=== PATIENT | female | born 1960 | race African-American/Black ===

== ENCOUNTER 2017-08-11 10:46 | Emergency (ER) | payer MEDICAID ==
[~2017-08-11] VITALS: Ht 160 cm; Wt 47.0 kg
[~2017-08-11 10:46] MED LIST: ATEN-42 PO; NO MEDICATIONS REPORTED
[2017-08-11 15:05] VITALS: BP 138/84
[2017-08-11] MEDS ORDERED: LIDOCAINE HCL 1% 20ML VIAL (Pyxis) INJ MC ONE (15:15)
[2017-08-11] MEDS ORDERED: ACETAMINOPHEN WITH CODEINE 300/30MG TABLET PO ONE (15:30)
== END 2017-08-11 16:10 | disposition home or self-care (01) ==
LOC: ER 12:56
DX: L02.212 Cutaneous abscess of back [any part, except buttock and flank] (principal); I10 Essential (primary) hypertension; Z76.0 Encounter for issue of repeat prescription; F17.210 Nicotine dependence, cigarettes, uncomplicated
CPT/HCPCS: 10060; 99283; J3490; X7700; Z7610